=== PATIENT | male | born 1945 | race Caucasian/White ===

== ENCOUNTER → 2017-06-14 | Outpatient (CLI) | payer OTHER ==
[~2017-06-14] MED LIST: ADULT LOW DOSE81 MG PO; ALLOPURINOL 30300 M2 PO; CRESTOR5 MG PO; DEPO-TESTO200 MG/1 M IM; FLOMAX0.4 MG PO; INVOKANA300 MG PO; LOTREL 5-20 MG1 EACH PO; METFORMIN HCL500 MG PO; NITROGLYCERIN0.4 MG SUBLING; NORCO 5-325 TA1 EACH PO; OMEPRAZOLE40 MG PO; TESTOPEL75 MG IMPLANT; TUMS PO; VITAMIN B-12500 MCG PO; ZETIA10 MG PO
== END ==
LOC: ULTRA 08:42
DX: Z01.818 Encounter for other preprocedural examination (principal)

== ENCOUNTER 2017-06-21 05:49 | Inpatient (IN) | payer OTHER ==
[2017-06-14 09:57] LABS: HEMATOCRIT 48.3 % (42.0-52.0); HEMOGLOBIN 16.9 gm/dL (14.0-18.0); MCH 30.1 pg (26.0-34.0); RBC 5.62 mil/uL (4.50-6.00); RDW 14.2 % (10.5-14.5); WBC 6.3 thou/uL (4.0-11.0)
[2017-06-14 10:12] LABS: APTT 26.5 Seconds (24.5-32.8)
[2017-06-14 10:19] LABS: CALCIUM 9.4 mg/dL (8.5-10.1); CREATININE 0.9 mg/dL (0.7-1.3); POTASSIUM 3.8 mmol/L (3.5-5.1)
[2017-06-14 11:08] LABS: URINE BILIRUBIN NEGATIVE (Negative); URINE BLOOD TRACE (Negative); URINE COLOR YELLOW; URINE GLUCOSE-RANDOM* 3+ (Negative); URINE KETONES NEGATIVE (Negative); URINE LEUKOCYTES-REFLEX NEGATIVE (Negative); URINE PROTEIN (DIPSTICK) NEGATIVE (Negative); URINE UROBILINOGEN 0.2 E.U./dl (0.2-1.0)
[~2017-06-21] VITALS: Ht 175.3 cm; Wt 102.3 kg
--- NOTE | ~2017-06-21 | EKG ---
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
--- NOTE | ~2017-06-21 | EKG ---
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 : 1945 Requested By: Melanie Mckoy Order Number: [id number] MD: Sergio Jim Measurements Intervals [place] Rate: 91 P: 55 SC: 181 QRS: -57 QRSD: 142 T: 77 QT: 402 QTc: 495 Interpretive Statements Sinus rhythm RBBB and LAFB Compared to ECG 06/14/2017 09:49:52 Left anterior fascicular block now present Electronically Signed On 06-26-2017 7:55:17 CDT by Sergio Jim [email or web address] <ELECTRONICALLY SIGNED> By: Sergio Jim MD, [facility] 06/26/17 0755 35 35 Sergio Jim MD, [facility] /EPI
--- NOTE | ~2017-06-21 | S ---
[facility] [address] [place] [address] SURGICAL PATH RPT PROCEDURE Name: KATHY JACK Room #: 204-P ADM IN M.R.#: [id number] Admission: 06/25/17 Date of : 47 Discharge: Report #: [id number] Path Case #: [id number] PATHOLOGY REPORT COLLECTION DATE: 06/25/2017 RECEIVED DATE: 06/25/2017 SUBMITTING PHYS: Dr. Jose Deluna OTHER PHYS: Dr. Dayami Collado M.D. SPECIMEN(S) RECEIVED: A.Aortic valve * * * * * * * * * * * * FINAL DIAGNOSIS: "Aortic valve", valve replacement: - Heart valve with calcific atherosclerosis. (CLW:ida; 06/27/2017) PATHOLOGIST: Yoselin Bowman M.D. REPORT ELECTRONICALLY SIGNED BY: Yoselin Bowman M.D. DATE/TIME: 06/27/2017 14:53 * * * * * * * * * * * * GROSS PATHOLOGY: The specimen is received in formalin, labeled "Kathy Jack, aortic valve". Received are multiple segments of rubbery, glistening, pale becerril soft tissue admixed with yellow-becerril, calcified material measuring 3.7 x 3.3 x 0.8 cm in aggregate dimensions. The specimen is submitted representatively in cassette A1, following decalcification. (DAC; 06/26/2017) CLINICAL HISTORY: Severe aortic stenosis INITIAL CPT CODE(S): A; 91351, 28166 Professional services performed by [facility] at [facility] [address] [place] [address] Technical services performed by [facility] at [address] [place] [address]. [facility] [address] [place] [address] SURGICAL PATH RPT PROCEDURE Name: KATHY JACK Room #: 204-P ADM IN M.R.#: [id number] Admission: 06/25/17 Date of : 47 Discharge: Report #: [id number] Path Case #: [id number] [facility] [place] [id number] [address] PHONE: [phone] DIRECTOR: Dusty Morris M.D. * * * END OF REPORT * * *
--- NOTE | ~2017-06-21 | O ---
[facility] [address] [place] [address] OPERATIVE REPORT Name: KATHY JACK Room #: 239-P [facility] IN M.R.#: [id number] Admission: 06/25/17 Attend Phys: Jose Deluna MD Discharge: Date of : 47 Report #: [id number] THIS REPORT FOR: //name// CC: Dayami Moser MD [facility] Jose Deluna DATE OF SERVICE: 06/25/2017 PREOPERATIVE DIAGNOSES: Severe aortic stenosis, normal coronary arteries. FINAL DIAGNOSES: Severe aortic stenosis, normal coronary arteries. OPERATIVE PROCEDURE PERFORMED: Aortic valve replacement with 25 mm Diaz Magna-Ease bovine pericardial bioprosthesis. CO-SURGEONS: Jose Deluna M.D. and Mic Collado M.D. ELECTRONICS WARFARE TECHNICIAN: ZI Swanson. ANESTHESIA: General. OPERATIVE INDICATIONS: The patient is a 72-year-old male who has presented with symptoms of severe dyspnea on exertion. He has undergone evaluation with echocardiography showing evidence of severe aortic stenosis. Subsequent left heart catheterization demonstrated normal coronary arteries. The patient is admitted and brought to the operating room now for aortic valve replacement. OPERATIVE SUMMARY: The patient was brought to the operating room and placed on the OR table in supine position. After anesthesia was induced via the general endotracheal route, monitoring lines have been positioned. The patient was prepped and draped in sterile fashion with chlorhexidine. A median sternotomy incision was made. Pericardium was opened. The patient systemically anticoagulated with heparin. Cannulae were placed in the ascending aorta and the right atrium and an antegrade cardioplegic cannula was positioned. Cardiopulmonary bypass was begun. A retrograde cardioplegic cannula was positioned and then under low flow conditions, the aorta was cross clamped, the heart was arrested with approximately 800 mL cold antegrade cardioplegia and subsequent 400 mL cold retrograde cardioplegia. This was augmented with topical ice slush. Diastolic arrest was achieved and maintained throughout this operation with intermittent doses of cold retrograde and antegrade cardioplegia as well as topical ice slush. A transverse aortotomy was made 1-2 cm above the right coronary artery. The valve was exposed and found to be heavily calcified, especially in the left leaflet. This calcification extended out on to the anterior leaflet of the [facility] [address] [place] [address] OPERATIVE REPORT Name: KATHY JACK Anderson Room #: 239-P [facility] IN [facility]#: [id number] Admission: 06/25/17 Attend Phys: Jose Deluna MD Discharge: Date of : 47 Report #: [id number] mitral valve. The valve was excised. The annulus was debrided of all calcium. We sized the valve and selected a 25 mm Diaz Magna Ease bovine pericardial bioprosthesis. We then placed 2-0 Ethibond sutures from the ventricular to the aortic side of the valve annulus. This was performed circumferentially. The sutures were brought up through the sewing rim of the valve. The valve was seated and the sutures were secured using core knots. The aortotomy was then closed in 2 layers with running 4-0 Prolene suture. The patient was placed in steep Trendelenburg and de-airing maneuvers were performed while giving warm cardioplegia. Under low flow conditions, the aorta cross-clamp was released to begin the period of reperfusion. The patient was fully rewarmed to 37 degree centigrade. Atrial and ventricular pacing wires were placed. Three successive doses of calcium and a single dose of magnesium were given over 3- to 5-minute intervals. After a suitable period of reperfusion, the lungs were reinflated. The patient was weaned from cardiopulmonary bypass without inotropic support. Protamine was given to reverse the heparin. Decannulation was effected. Once satisfactory hemostasis was achieved, mediastinal chest tubes were placed and brought out through separate stab incisions. The sternum was closed with #7 wire. The fascia, subcutaneous and skin were closed in multiple layers with absorbable suture. The procedure was completed, the patient was taken to CVICU in stable condition. Cardiopulmonary bypass time and cross-clamp times are not available to me at the time of this dictation. <ELECTRONICALLY SIGNED> By: Jose Deluna MD 06/26/17 0753 1133 1157 Jose Deluna MD /nt
--- NOTE | ~2017-06-21 | EKG ---
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 06/26/1714 6 6 Sergio Jim MD, FAC /EPI
--- NOTE | ~2017-06-21 | HC ---
[facility] [address] [place] [address] CONSULTATION Name: KATHY JACK Room #: 239-P [facility] IN ..#: [id number] Admission: 06/25/17 Attend Phys: Jose Deluna MD Discharge: Date of : 47 Report #: [id number] THIS REPORT FOR: //name// CC: Dayami Deluna HISTORY OF PRESENT ILLNESS: The patient is a 72-year-old white male who underwent aortic valve replacement earlier today. The patient has a history of aortic stenosis and has been followed by my partner, Dr. Moser. Recently, he was having intermittent chest discomfort with exertion. He also noticed some exertional dyspnea. He apparently had no syncope. He saw Dr. Moser who felt his symptoms were consistent with angina. Echocardiogram showed a mean gradient across the aortic valve of 50 mmHg with normal left ventricular function. Dr. Moser performed a cardiac catheterization at [facility] that showed no significant coronary artery disease. The patient was referred to Dr. Deluna. Earlier today, the patient underwent aortic valve replacement using a tissue valve. I was asked to see him in the ICU. The patient currently has been extubated. He denies any significant nausea and lightheadedness. PAST MEDICAL HISTORY: Otherwise significant for no other major surgical procedures. He does have a history of hypertension and prostatism. MEDICATIONS: On admission included allopurinol, Lotrel, , Glucophage, omeprazole, Crestor, Flomax. ALLERGIES: He has no known drug allergies. FAMILY HISTORY: Negative for heart disease. SOCIAL HISTORY: He is , nonsmoker, no alcohol abuse. Lives in [place], [place]. REVIEW OF SYSTEMS: He has had no history of stroke, asthma, peptic ulcer disease, liver disease, kidney disease, cancer. PHYSICAL EXAMINATION: GENERAL: Revealed an elderly male who was lying in the ICU. No acute distress. VITAL SIGNS: His blood pressure 110/70, his pulse is 70. HEENT: He is anicteric. Mucous membranes moist. CHEST: Clear to auscultation. CARDIOVASCULAR: Regular rate and rhythm, grade 2 systolic ejection murmur. ABDOMEN: Soft. EXTREMITIES: Had no pedal edema. SKIN: Cool and dry. He had an ECG postop shows a sinus rhythm, left axis and a right bundle [facility] [address] [place] [address] CONSULTATION Name: KATHY JACK Room #: 239-P [facility] IN [facility].#: [id number] Admission: 06/25/17 Attend Phys: Jose Deluna MD Discharge: Date of : 47 Report #: [id number] branch block. His workup so far, carotid Doppler study done 10 days ago showed no significant stenosis. Chest x-ray postoperatively today showed cardiomegaly, mild vascular congestion. Lab work today, sodium 142, creatinine 1.2, glucose 172, white blood cell count 17.6, hemoglobin 12.5. IMPRESSION AND RECOMMENDATIONS: 1. Status post aortic valve replacement using a tissue valve. The patient currently is on amiodarone prophylaxis. 2. Hypertension. The patient has been on a calcium martin and JANY inhibitor in the past. 3. Diabetes. 4. Hyperlipidemia. The patient has been on a statin drug. 5. Prostatism. <ELECTRONICALLY SIGNED> By: Mike Nolan MD, [facility] 06/26/17 0811 1936 0720 Mike Nolan MD, FACC /nt
[2017-06-25 07:30] VITALS: BP 155/79
[2017-06-25 11:29] LABS: MCH 29.4 pg (26.0-34.0); MCV 86.6 fL (80.0-100.0); RBC 3.94 mil/uL (4.50-6.00); RDW 14.5 % (10.5-14.5); WBC 11.7 thou/uL (4.0-11.0)
[2017-06-25 11:31] LABS: HEMATOCRIT 34.1 % (42.0-52.0); HEMOGLOBIN 11.6 gm/dL (14.0-18.0)
[2017-06-25 11:45] LABS: APTT 25.6 Seconds (24.5-32.8); INR 1.3; PROTIME 13.3 Seconds (9.3-11.4)
[2017-06-25 13:02] LABS: ABG SAMPLE TYPE ARTERIAL; BE(vivo) -4.5 mmol/L (-2 to +3); HCO3 22.3 mmol/L (22.0-26.0); LACTATE 2.21 mmol/L (0.5-2.0); O2(CT) 19.6 mL/dL (15.0-23.0); O2Hb 94.1 % (92.0-98.0); PCO2 47.2 mmHg (35.0-45.0); PO2 86.2 mmHg (80.0-100.0); sO2 95.5 % (92.0-98.0); tCO2 23.7 mmol/L (24.0-30.0)
[2017-06-25 13:03] LABS: STICK SITE LINE; TIDAL VOLUME 600 ml; pH 7.292 (7.360-7.450)
[2017-06-25 13:12] LABS: HEMATOCRIT 40.8 % (42.0-52.0); MCH 29.3 pg (26.0-34.0); MCHC 33.9 g/dL (28.0-37.0); MCV 86.4 fL (80.0-100.0); RBC 4.73 mil/uL (4.50-6.00); RDW 14.6 % (10.5-14.5); WBC 19.1 thou/uL (4.0-11.0)
[2017-06-25 13:14] LABS: HEMOGLOBIN 13.9 gm/dL (14.0-18.0)
[2017-06-25 13:20] LABS: CALCIUM 8.5 mg/dL (8.5-10.1); CREATININE 1.2 mg/dL (0.7-1.3)
[2017-06-25 13:21] LABS: MAGNESIUM 2.7 mg/dL (1.8-2.4)
[2017-06-25 17:39] LABS: ABG SAMPLE TYPE ARTERIAL; BE(vivo) -1.9 mmol/L (-2 to +3); HCO3 23.3 mmol/L (22.0-26.0); LACTATE 1.89 mmol/L (0.5-2.0); O2(CT) 18.5 mL/dL (15.0-23.0); O2Hb 97.5 % (92.0-98.0); PCO2 41.3 mmHg (35.0-45.0); PO2 145.7 mmHg (80.0-100.0); STICK SITE LINE; pH 7.369 (7.360-7.450); sO2 98.8 % (92.0-98.0); tCO2 24.6 mmol/L (24.0-30.0)
[2017-06-25 17:40] LABS: Pressure Support 6 cm H20
[2017-06-25 18:05] LABS: HEMATOCRIT 37.5 % (42.0-52.0); HEMOGLOBIN 12.5 gm/dL (14.0-18.0); MCHC 33.3 g/dL (28.0-37.0); MCV 87.1 fL (80.0-100.0); RBC 4.31 mil/uL (4.50-6.00); RDW 14.4 % (10.5-14.5); WBC 17.6 thou/uL (4.0-11.0)
[2017-06-25 18:10] LABS: CALCIUM 8.5 mg/dL (8.5-10.1); CREATININE 1.2 mg/dL (0.7-1.3); POTASSIUM 4.9 mmol/L (3.5-5.1)
[2017-06-25 18:32] LABS: POC BE 5 mmol/L (-2.0 to +3.0); POC CA IONIZED 6.2 mg/dL (4.5-5.3); POC FiO2 100 %; POC GLUCOSE 164 mg/dL (70-99); POC HCO3 29.9 mmol/L (22.0-26.0); POC HEMOGLOBIN 10.5 g/dL (14.0-18.0); POC POTASSIUM 4.2 mmol/L (3.5-5.1); POC SODIUM 137 mmol/L (136-145); POC pH 7.402 (7.360-7.450)
[2017-06-25 18:32] LABS: POC BE 4 mmol/L (-2.0 to +3.0); POC CA IONIZED 5.2 mg/dL (4.5-5.3); POC FiO2 100 %; POC GLUCOSE 158 mg/dL (70-99); POC HCO3 28.4 mmol/L (22.0-26.0); POC HEMOGLOBIN 11.2 g/dL (14.0-18.0); POC POTASSIUM 3.9 mmol/L (3.5-5.1); POC SODIUM 139 mmol/L (136-145); POC pCO2 41.2 mmHg (35.0-45.0); POC pH 7.446 (7.360-7.450)
[2017-06-25 18:32] LABS: POC BE -2 mmol/L (-2.0 to +3.0); POC FiO2 100 %; POC GLUCOSE 142 mg/dL (70-99); POC HCO3 23.4 mmol/L (22.0-26.0); POC HEMOGLOBIN 12.9 g/dL (14.0-18.0); POC POTASSIUM 3.8 mmol/L (3.5-5.1); POC SODIUM 142 mmol/L (136-145); POC pCO2 38.8 mmHg (35.0-45.0); POC pH 7.388 (7.360-7.450)
[2017-06-25 18:32] LABS: POC BE 0 mmol/L (-2.0 to +3.0); POC CA IONIZED 4.4 mg/dL (4.5-5.3); POC FiO2 100 %; POC GLUCOSE 182 mg/dL (70-99); POC HCO3 24.7 mmol/L (22.0-26.0); POC HEMOGLOBIN 11.6 g/dL (14.0-18.0); POC POTASSIUM 4.4 mmol/L (3.5-5.1); POC SODIUM 139 mmol/L (136-145); POC pH 7.388 (7.360-7.450)
[2017-06-25 18:32] LABS: POC BE 4 mmol/L (-2.0 to +3.0); POC CA IONIZED 4.5 mg/dL (4.5-5.3); POC FiO2 100 %; POC GLUCOSE 173 mg/dL (70-99); POC HCO3 28.8 mmol/L (22.0-26.0); POC HEMOGLOBIN 11.2 g/dL (14.0-18.0); POC POTASSIUM 4.3 mmol/L (3.5-5.1); POC SODIUM 140 mmol/L (136-145); POC pCO2 44.5 mmHg (35.0-45.0); POC pH 7.419 (7.360-7.450)
[2017-06-25 18:32] LABS: POC BE 4 mmol/L (-2.0 to +3.0); POC CA IONIZED 4.5 mg/dL (4.5-5.3); POC FiO2 100 %; POC GLUCOSE 179 mg/dL (70-99); POC HCO3 28.3 mmol/L (22.0-26.0); POC HEMOGLOBIN 11.6 g/dL (14.0-18.0); POC POTASSIUM 4.4 mmol/L (3.5-5.1); POC SODIUM 139 mmol/L (136-145); POC pCO2 44.6 mmHg (35.0-45.0)
[2017-06-25 18:36] LABS: POC BE 3 mmol/L (-2.0 to +3.0); POC CA IONIZED 4.7 mg/dL (4.5-5.3); POC FiO2 100 %; POC GLUCOSE 180 mg/dL (70-99); POC HCO3 26.5 mmol/L (22.0-26.0); POC HEMOGLOBIN 13.9 g/dL (14.0-18.0); POC POTASSIUM 4.2 mmol/L (3.5-5.1); POC SODIUM 141 mmol/L (136-145); POC pCO2 35.9 mmHg (35.0-45.0); POC pH 7.476 (7.360-7.450)
[2017-06-25 18:36] LABS: POC BE 2 mmol/L (-2.0 to +3.0); POC CA IONIZED 4.7 mg/dL (4.5-5.3); POC FiO2 100 %; POC GLUCOSE 174 mg/dL (70-99); POC HCO3 26.7 mmol/L (22.0-26.0); POC HEMOGLOBIN 13.6 g/dL (14.0-18.0); POC POTASSIUM 4.1 mmol/L (3.5-5.1); POC SODIUM 140 mmol/L (136-145); POC pCO2 43.7 mmHg (35.0-45.0); POC pH 7.393 (7.360-7.450)
[2017-06-25 18:36] LABS: POC BE 3 mmol/L (-2.0 to +3.0); POC CA IONIZED 4.3 mg/dL (4.5-5.3); POC FiO2 100 %; POC GLUCOSE 185 mg/dL (70-99); POC HCO3 28.1 mmol/L (22.0-26.0); POC HEMOGLOBIN 11.2 g/dL (14.0-18.0); POC POTASSIUM 4.4 mmol/L (3.5-5.1); POC SODIUM 138 mmol/L (136-145); POC pCO2 44.2 mmHg (35.0-45.0); POC pH 7.411 (7.360-7.450)
[2017-06-26 05:49] LABS: HEMATOCRIT 29.4 % (42.0-52.0); MCH 29.8 pg (26.0-34.0); MCV 87.6 fL (80.0-100.0); RBC 3.36 mil/uL (4.50-6.00); RDW 14.3 % (10.5-14.5); WBC 13.7 thou/uL (4.0-11.0)
[2017-06-26 06:01] LABS: CALCIUM 8.2 mg/dL (8.5-10.1); CREATININE 1.6 mg/dL (0.7-1.3); MAGNESIUM 2.4 mg/dL (1.8-2.4)
[2017-06-26 14:27] VITALS: BP 76/66
[2017-06-26 14:29] VITALS: BP 93/49
[2017-06-26 15:31] VITALS: BP 82/57
[2017-06-26 15:39] VITALS: BP 92/60
[2017-06-26 19:43] VITALS: BP 107/65
[2017-06-26 23:18] VITALS: BP 111/71
[2017-06-27 05:29] VITALS: BP 95/61
[2017-06-27 08:18] VITALS: BP 100/61
[2017-06-27 11:54] VITALS: BP 86/46
[2017-06-27 16:00] VITALS: BP 120/76
[2017-06-27 19:33] VITALS: BP 136/82
[2017-06-27 23:15] VITALS: BP 134/80
[2017-06-28 04:06] VITALS: BP 109/74
[2017-06-28 04:19] LABS: HEMATOCRIT 26.8 % (42.0-52.0); HEMOGLOBIN 8.9 gm/dL (14.0-18.0); MCH 29.6 pg (26.0-34.0); MCHC 33.4 g/dL (28.0-37.0); MCV 88.8 fL (80.0-100.0); RBC 3.01 mil/uL (4.50-6.00); RDW 14.6 % (10.5-14.5); WBC 13.4 thou/uL (4.0-11.0)
[2017-06-28 04:24] LABS: CALCIUM 8.9 mg/dL (8.5-10.1); CREATININE 1.6 mg/dL (0.7-1.3); POTASSIUM 4.6 mmol/L (3.5-5.1)
[2017-06-28 04:26] LABS: INR 1.3; PROTIME 13.5 Seconds (9.3-11.4)
[2017-06-28 07:40] VITALS: BP 124/68
[2017-06-28] MEDS ORDERED: HYDROCODON-ACE1 EAC7 PO (15:16)
[2017-06-28] MEDS ORDERED: LOPRESSOR25 PO (15:33)
[2017-06-28] MEDS ORDERED: ASPIRIN325 PO (15:33)
[2017-06-28] MEDS ORDERED: COUMADIN 3 MG TA3 MG PO (15:33)
[2017-06-28 18:05] VITALS: BP 118/60
[2017-06-28 19:35] VITALS: BP 124/53
[2017-06-29 03:33] VITALS: BP 107/67
[2017-06-29 04:34] LABS: CALCIUM 8.8 mg/dL (8.5-10.1); CREATININE 1.2 mg/dL (0.7-1.3); MAGNESIUM 2.5 mg/dL (1.8-2.4); POTASSIUM 4.2 mmol/L (3.5-5.1)
[2017-06-29 04:39] LABS: INR 1.8; PROTIME 18.7 Seconds (9.3-11.4)
[2017-06-29 08:00] VITALS: BP 135/90
[2017-06-29 12:45] VITALS: BP 94/58
[2017-06-29 17:15] VITALS: BP 121/74
[2017-06-29 19:26] VITALS: BP 119/73
[2017-06-30 04:12] VITALS: BP 120/59
[2017-06-30 04:58] LABS: PROTIME 29.8 Seconds (9.3-11.4)
[2017-06-30 08:00] VITALS: BP 127/78
[2017-06-30 15:51] VITALS: BP 96/64
[2017-06-30 19:32] VITALS: BP 104/59
[2017-07-01 03:48] VITALS: BP 125/74
[2017-07-01 04:50] LABS: INR 2.8; PROTIME 28.1 Seconds (9.3-11.4)
[2017-07-01 07:22] VITALS: BP 133/69
[2017-07-01 11:35] VITALS: BP 99/64
[2017-07-01 16:00] VITALS: BP 115/70
[2017-07-01 19:20] VITALS: BP 134/72
[2017-07-02 03:25] VITALS: BP 129/79
[2017-07-02 04:21] LABS: HEMATOCRIT 29.5 % (42.0-52.0); HEMOGLOBIN 9.9 gm/dL (14.0-18.0); MCH 29.3 pg (26.0-34.0); MCHC 33.5 g/dL (28.0-37.0); MCV 87.7 fL (80.0-100.0); RBC 3.37 mil/uL (4.50-6.00); RDW 14.1 % (10.5-14.5); WBC 9.5 thou/uL (4.0-11.0)
[2017-07-02 04:31] LABS: INR 2.1; PROTIME 21.1 Seconds (9.3-11.4)
[2017-07-02 04:34] LABS: CALCIUM 8.6 mg/dL (8.5-10.1); CREATININE 1.1 mg/dL (0.7-1.3); MAGNESIUM 2.1 mg/dL (1.8-2.4); POTASSIUM 3.9 mmol/L (3.5-5.1)
[2017-07-02 07:31] VITALS: BP 119/69
[2017-07-02 10:02] VITALS: BP 122/66
[2017-07-02 13:22] VITALS: BP 151/88
[2017-07-02 16:32] VITALS: BP 115/61
[2017-07-02 19:30] VITALS: BP 128/69
[2017-07-03 00:04] VITALS: BP 105/76
[2017-07-03 04:15] VITALS: BP 91/51
[2017-07-03 04:27] LABS: INR 1.8; PROTIME 18.1 Seconds (9.3-11.4)
[2017-07-03 07:30] VITALS: BP 100/60
[2017-07-03 11:00] VITALS: BP 88/48
[2017-07-03 15:01] VITALS: BP 110/65
[2017-07-03 20:17] VITALS: BP 109/63
[2017-07-04 03:59] VITALS: BP 101/51
[2017-07-04 04:20] LABS: INR 1.3
[2017-07-04 07:30] VITALS: BP 114/65
[2017-07-04 10:51] VITALS: BP 114/65
[2017-07-04 10:52] VITALS: BP 114/65
[2017-07-04 14:24] VITALS: BP 114/65
[2017-07-04 15:20] VITALS: BP 114/65
== END 2017-07-04 15:00 | disposition home health service (06) | DRG 220 ==
LOC: PRE 05:49 → TBA 06-25 05:27 → ICU 06-25 05:27 → PRE 06-25 08:06 → ICU 06-25 13:00 → 2N 06-26 16:06 → ENTRNSPT 07-04 14:53 → EDTRNSPTSTS 07-04 14:55 → 2N 07-04 15:00
PROVIDERS: Internal Medicine Cardiovascular Disease; Nurse Practitioner; Thoracic Surgery (Cardiothoracic Vascular Surgery)
PROC: 02RF08Z Replacement of Aortic Valve with Zooplastic Tissue, Open Approach (ICD-10-PCS; principal; 2017-06-25)
PROC: 0BH17EZ Insertion of Endotracheal Airway into Trachea, Via Natural or Artificial Opening (ICD-10-PCS; 2017-06-25)
PROC: 5A1935Z Respiratory Ventilation, Less than 24 Consecutive Hours (ICD-10-PCS; 2017-06-25)
PROC: 30233L1 Transfusion of Nonautologous Fresh Plasma into Peripheral Vein, Percutaneous Approach (ICD-10-PCS; 2017-07-02)
PROC: 30233K1 Transfusion of Nonautologous Frozen Plasma into Peripheral Vein, Percutaneous Approach (ICD-10-PCS; 2017-07-02)
PROC: 0WQ8XZZ Repair Chest Wall, External Approach (ICD-10-PCS; 2017-07-02)
PROC: 3E10X8Z Irrigation of Skin and Mucous Membranes using Irrigating Substance (ICD-10-PCS; 2017-07-02)
DX: I35.0 Nonrheumatic aortic (valve) stenosis (principal); D62 Acute posthemorrhagic anemia; T81.30XA Disruption of wound, unspecified, initial encounter; I10 Essential (primary) hypertension; E11.9 Type 2 diabetes mellitus without complications; E78.5 Hyperlipidemia, unspecified; N40.0 Benign prostatic hyperplasia without lower urinary tract symptoms; D64.9 Anemia, unspecified; K21.9 Gastro-esophageal reflux disease without esophagitis; M10.9 Gout, unspecified; M81.0 Age-related osteoporosis without current pathological fracture; I25.10 Atherosclerotic heart disease of native coronary artery without angina pectoris; N28.9 Disorder of kidney and ureter, unspecified
CPT/HCPCS: 10081; 10204; 10797; 47000; 47001; 47002; 47297; 47335; 48888; 50010; 50101; 50386; 50409; 50417; 50456; 50497; 51301; 52131; 52314; 53327; 53358; 54118; 55022; 56524; 56525; 56526; 56527; 56528; 56529; 56531; 56533; 56660; 57080; 57081; 57082; 57093; 62110; 62900; 62950; 64029; 65002; 65020; 65043; 65045; 70005; 83006

== ENCOUNTER → 2017-07-31 | Outpatient (CLI) | payer OTHER ==
[~2017-07-31] MED LIST changes: +ASPIRIN325 PO; +COUMADIN 3 MG TA3 MG PO; +HYDROCODON-ACE1 EAC7 PO; +LOPRESSOR25 PO
== END ==
LOC: RAD 09:56
DX: Z95.2 Presence of prosthetic heart valve (principal)

== ENCOUNTER → 2017-08-01 | Outpatient (CLI) | payer OTHER | LOC: ULTRA 12:59 | DX: J90 Pleural effusion, not elsewhere classified (principal); Z95.2 Presence of prosthetic heart valve ==

== ENCOUNTER → 2017-08-07 | Outpatient (CLI) | payer OTHER ==
--- NOTE | ~2017-08-07 | CNG ---
[facility] [address] [place] [address] CYTO-NONGYN REPORT PROCEDURE Name: KATHY JACK Room #: REG AD AcevedoIrene#: [id number] Admission: 08/07/17 Date of : 47 Discharge: Report #: [id number] Path Case #: [id number] CYTOPATHOLOGY REPORT COLLECTION DATE: 08/07/2017 RECEIVED DATE: 08/07/2017 SUBMITTING PHYS: Melanie Mckoy, [facility] OTHER PHYS: Dr. Dayami Barros CLINICAL HISTORY: Pleural effusion. SPECIMEN(S) RECEIVED: A.Pleural fluid, Left * * * * * * * * * * * * FINAL DIAGNOSIS: A. Pleural fluid, Left: Atypical cells identified. - Atypical/highly reactive mesothelial cells and inflammatory cells identified. - See comment. COMMENT: Immunohistochemical stains performed on the cell block (A1), with appropriately reactive controls show the following: Calretinin: Highlights mesothelial cells WT-1: Highlights mesothelial cells BerEP4: Negative S100: Negative TTF-1: Negative These findings support the above diagnosis. PATHOLOGIST: Jose Harrison M.D. REPORT ELECTRONICALLY SIGNED BY: Jose Harrison M.D. DATE/TIME: 08/09/2017 12:09 * * * * * * * * * * * * GROSS PATHOLOGY: A. Pleural fluid, Left: The specimen is submitted unfixed, labeled "Kathy Jack". Received by the Cytology Department is 35 mL of red fluid. One ThinPrep slide and a formalin fixed cell block were prepared. (clt 08.07.2017) DIESEL ENGINE OPERATOR(S): CHACHO Herron([facility]) INITIAL CPT CODE(S): A; 70965, 92941, 42714, 08970, 14247, 98642, [address] [facility] [address] [place] [address] CYTO-NONGYN REPORT PROCEDURE Name: KATHY JACK [id number] Admission: 08/07/17 Date of : 47 Discharge: Report #: [id number] Path Case #: [id number] [address] [facility] , [place] [address] Technical services performed by [facility] at [address] [place] [address], [address], [place] [address]. [address], [facility] [address] [place] [address] PHONE: [phone] DIRECTOR: Dusty Morris M.D. * * * END OF REPORT * * *
[2017-08-07 09:59] LABS: PROTIME 10.6 Seconds (9.3-11.4)
[2017-08-07 11:37] LABS: CLARITY TURBID; COLOR RED; MANUAL DIFF YES; TOTAL VOLUME 60 mL
[2017-08-07 12:36] LABS: BF NUCLEATED CELLS 1670; BF RBC 303208
[2017-08-07 14:01] LABS: BF MACROPHAGE 19; BF NEUTROPHILS 3
[2017-08-09 09:08] LABS: BODY FLUID AMYLASE 33 U/L (()); BODY FLUID GLUCOSE 130 mg/dL (()); BODY FLUID LDH 322 IU/L (()); BODY FLUID PROTEIN 4.9 g/dL (())
== END | disposition home or self-care (01) ==
LOC: ULTRA 09:18
PROVIDERS: Nurse Practitioner
DX: J90 Pleural effusion, not elsewhere classified (principal); I12.9 Hypertensive chronic kidney disease with stage 1 through stage 4 chronic kidney disease, or unspecified chronic kidney disease; E11.22 Type 2 diabetes mellitus with diabetic chronic kidney disease; N18.9 Chronic kidney disease, unspecified; Z79.899 Other long term (current) drug therapy; Z98.890 Other specified postprocedural states; Z79.01 Long term (current) use of anticoagulants; Z79.82 Long term (current) use of aspirin